=== PATIENT | male | born 1940 | race Caucasian/White ===

== ENCOUNTER 2024-07-15 12:49 | Emergency (ER) | payer MEDICARE ==
[~2024-07-15] VITALS: Ht 167.6 cm; Wt 86.0 kg
[2024-07-15 12:59] VITALS: BP 134/81
[2024-07-15] MEDS ORDERED: Diph, Acellular Pertussis, Tet 0.5 ML/VIAL (Tdap) SDV IM ONE (13:10)
[2024-07-15] MEDS ORDERED: HYDROcodone 5 MG/Acetaminophen 325 MG/COMBO PO ONE (13:10)
[2024-07-15] MEDS ORDERED: AMOX/K CLAV875 M1 PO (14:35)
[2024-07-15] MEDS ORDERED: ZPAK PO (14:35)
[2024-07-15] MEDS ORDERED: HYDROCO/APAP1 TA9 PO (14:35)
[2024-07-15 15:05] VITALS: BP 99/76
== END 2024-07-15 15:06 | disposition home or self-care (01) ==
LOC: ED 12:49
DX: S22.41XA Multiple fractures of ribs, right side, initial encounter for closed fracture (principal); S81.811A Laceration without foreign body, right lower leg, initial encounter; W01.0XXA Fall on same level from slipping, tripping and stumbling without subsequent striking against object, initial encounter; Z96.653 Presence of artificial knee joint, bilateral

== ENCOUNTER 2024-08-10 11:58 | Observation (INO) | payer MEDICARE ==
[2024-08-10] VITALS (8 sets, daily range): BP systolic 103–124; BP diastolic 67–83
[~2024-08-10] VITALS: Ht 172.7 cm; Wt 104.4 kg
[~2024-08-10 11:58] MED LIST: AMOX/K CLAV875 M1 PO; HYDROCO/APAP1 TA9 PO; ZPAK PO
[2024-08-10] MEDS ORDERED: ASPIRIN 81 MG/TAB PO ONE (12:10)
--- NOTE | 2024-08-10 12:10 | NUR ---
PATIENT TO ER ROOM 1 WITH STEADY GAIT.
[2024-08-10 12:32] LABS: BASO% 0.5 % (0-3); EOS% 1.3 % (0-8); HEMATOCRIT 45.8 % (39.0-50.0); HEMOGLOBIN 14.5 g/dl (14.0-18.0); LYMPH% 8.6 % (15-41); MEAN CELL VOLUME 101.8 fL CALC (80.0-100.0); MEAN CORPUSCULAR HGB 32.2 pG CALC (26.0-32.0); MEAN CORPUSCULAR HGB CONC 31.7 g/dL CAL (32.0-36.0); MONO% 9.7 % (2-13); NEUT# 6.52 thou/uL (1.82-7.42); NEUT% 78.9 % (42-76); RED BLOOD COUNT 4.5 mill/uL (4.70-6.10); RED CELL DISTRI WIDTH 13.3 % (11.5-15.5)
[2024-08-10 12:41] LABS: ALBUMIN 4.3 g/dL (3.2-5.0); ALKALINE PHOSPHATASE 430 u/l (38-126); ANION GAP 17 (6-22 (CALC)); BILIRUBIN, TOTAL 1.3 mg/dL (0.2-1.3); BUN 27 mg/dL (8-23); BUN/CREATININE RATIO 14 (12-20 (CALC)); CARBON DIOXIDE 27 mmol/l (22-30); CHLORIDE 99 mmol/l (95-108); CREATININE 1.9 mg/dL (0.7-1.3); ESTIMATED GFR 35 ML/MIN (>=90 (CALC)); LIPASE 47 u/l (23-300); POTASSIUM 4.2 mmol/l (3.5-5.1); SGOT/AST 37 u/l (19-48); SODIUM 138 mmol/l (137-146); TOTAL PROTEIN 7.4 g/dL (6.3-8.2)
[2024-08-10 12:54] LABS: PROTHROMBIN TIME 10.5 SECONDS (9.0-12.5)
[2024-08-10 13:06] LABS: URINE BILIRUBIN - DIPSTICK Negative (NEGATIVE); URINE BLOOD DIPSTICK Negative (NEGATIVE); URINE GLUCOSE - DIPSTICK Negative (NEGATIVE); URINE KETONE Negative (NEGATIVE); URINE LEUK ESTERASE Negative (NEGATIVE); URINE NITRITE - DIPSTICK Negative (Negative); URINE PROTEIN - DIPSTICK Negative (NEG-TRACE); URINE SPECIFIC GRAVITY 1.015
[2024-08-10 13:18] LABS: URINE COLOR Yellow
--- NOTE | 2024-08-10 13:35 | NUR ---
PT BACK FROM CT, VSS, CALL LIGHT WITHIN REACH, UPDATED ON THE PLAN OF CARE
[2024-08-10] MEDS ORDERED: Pantoprazole Sodium 40 MG VIAL (Protonix) IV ONE (15:15)
[2024-08-10] MEDS ORDERED: FAMOTIDINE 10MG/ML 2ML SDV IV ONE (15:15)
--- NOTE | 2024-08-10 15:25 | NUR ---
PT MEDICATED PER EMAR, PT SITTING IN THE CHAIR, GAVE THE PT A WATER, PT DENIES ANY NEEDS AT THIS TIME, CALL LIGHT WITHIN REACH, PT UPDATED ON THE PLAN OF CARE
--- NOTE | 2024-08-10 15:26 | NUR ---
PT MEDICATED PER EMAR, PT SITTING IN THE CHAIR, PT DENIES ANY NEEDS AT THIS TIME, PT UPDATED ON THE PLAN OF CARE
[2024-08-10] MEDS ORDERED: VAZALORE81 MG PO (15:29)
[2024-08-10] MEDS ORDERED: CIMETIDINE400 M1 PO (15:30)
[2024-08-10] MEDS ORDERED: FINASTERIDE5 MG PO (15:31)
[2024-08-10] MEDS ORDERED: CITALOPRAM20 MG PO (15:31)
[2024-08-10] MEDS ORDERED: KLOR-CON M1010 MEQ PO (15:33)
[2024-08-10] MEDS ORDERED: LASIX 80 MG TAB80 MG PO (15:33)
[2024-08-10] MEDS ORDERED: ALDACTONE50 MG PO (15:34)
[2024-08-10] MEDS ORDERED: TRELEGY ELLIPTA1 AE1 IN (15:35)
[2024-08-10] MEDS ORDERED: TAMSULOSIN0.4 MG PO (15:35)
[2024-08-10] MEDS ORDERED: SULFAMETHOXAZOL1 TA3 PO (15:37)
[2024-08-10] MEDS ORDERED: SODIUM CHLORIDE 0.9% 1,000 ML IV ONE (16:10)
[2024-08-10] MEDS ORDERED: ACETAMINOPHEN 325 MG/TAB PO PRN (16:25)
[2024-08-10] MEDS ORDERED: MAGNESIUM HYDROXIDE 30 ML UDC PO PRN (16:25)
[2024-08-10] MEDS ORDERED: Polyethylene Glycol 3350 17 GM/PKT PO SCH (17:00)
--- NOTE | 2024-08-10 17:16 | NUR ---
PT SITTING UP AT THE FOOT OF THE BED EATING DINNER, PT UPDATED ON THE PLAN OF CARE, PT DENIES ANY OTHER NEEDS AT THIS TIME
--- NOTE | 2024-08-10 18:01 | NUR ---
[facility] CALLED BACK, GAVE REPORT TO MATT BELTRAN LPN, PT TO BE TRANSPORTED TO [facility] BED [address]
--- NOTE | 2024-08-10 18:20 | NUR ---
PT ARRIVED TO THE UNIT VIA WC, PT IS A&O X3, PT AMBULATED FROM THE WC TO THE BEDSIDE SCALE AND TO THE BED WITH A STEADY GAIT, RESP. EVEN AND UNLABORED, PT ORIENTED TO THE ROOM AND CALL LARSON SYSTEM, SAFETY MEASURES INFORCED, CALL LARSON WITHIN REACH
--- NOTE | 2024-08-10 20:00 | NUR ---
RECEIVED REPORT FROM NURSE URBANO, PATIENT ALERT ORIENTED ABLE TO MAKE NEEDS KNONW, DENIES PAIN AT THIS TIME, PATIENT ARRIVED [facility] UNIT AT 1820, PATIENT DENIES PAIN AT THIS TIME, HOKED ON TELE #4 SR 98, LUNG SOUNDS CLEAR, PATIENT NOT IN DISTRESS, WOUND NOTED ON RT ANTERIOR LEG DRESSING IN PLACED AND WOUND ON LEFT LATERAL LEG DRESSING IN PLACED, PATIENT GOES TO [facility] ONCE A WEEK EVERY THURSDAY, TRACE EDEMA NOTED ON BILAT ANKLE, ADMISSION ASSESSMENT COMPLETED, PATIENT ORIENTED TO ROOM AND CALL LIGHT SYSTEM.
[2024-08-10] MEDS ORDERED: TAMSULOSIN HCL 0.4 MG CAP PO SCH (21:00)
[2024-08-10] MEDS ORDERED: Heparin SODIUM (Porcine) 5,000 UNITS/ML SDV SC SCH (22:00)
[2024-08-11] VITALS (10 sets, daily range): BP systolic 98–121; BP diastolic 62–73
--- NOTE | 2024-08-11 00:47 | NUR ---
PATIENT RESTING IN BED, EYES CLOSED, BREATHING EVEN UNLABORED MARIANNE;L LIGHT WITHIN REACHED.
[2024-08-11 03:21] LABS: ALBUMIN 3.7 g/dL (3.2-5.0); BASO% 0.8 % (0-3); BILIRUBIN, TOTAL 0.8 mg/dL (0.2-1.3); CHOLESTEROL HDL RATIO 2.1 (<4.4 (CALC)); CREATININE 2.1 mg/dL (0.7-1.3); EOS% 2.7 % (0-8); IMMATURE GRANULOCYTES 0.4 % (0.0-5.0); LYMPH% 8.9 % (15-41); MAGNESIUM 2.5 mg/dL (1.6-2.3); MEAN CELL VOLUME 102.4 fL CALC (80.0-100.0); MEAN CORPUSCULAR HGB 32.9 pG CALC (26.0-32.0); MEAN CORPUSCULAR HGB CONC 32.1 g/dL CAL (32.0-36.0); MONO% 14.6 % (2-13); NEUT# 5.32 thou/uL (1.82-7.42); NEUT% 72.6 % (42-76); POTASSIUM 4.2 mmol/l (3.5-5.1); RED BLOOD COUNT 3.8 mill/uL (4.70-6.10); RED CELL DISTRI WIDTH 13.4 % (11.5-15.5); TOTAL PROTEIN 6.7 g/dL (6.3-8.2)
[2024-08-11 03:40] LABS: HEMATOCRIT 38.9 % (39.0-50.0); HEMOGLOBIN 12.5 g/dl (14.0-18.0)
--- NOTE | 2024-08-11 04:50 | NUR ---
PATIENT RESTING IN BED, EYES CLOSED, BREATHING EVEN UNALABORED, DENIES PAIN AT THIS TIME, CALL LIGHT WITHIN REACHED.
--- NOTE | 2024-08-11 07:10 | NUR ---
PT LAYING IN BED RESTING WITH EYES CLOSED, AROUSES EASILY TO VERBAL STIMULI, PT A&O X3, NORMAL S1 S2 HEART SOUNDS, TELE MONITOR IN PLACE, ABD DISTENDED AND SOFT WITH ACTIVE BOWEL SOUNDS, 20G RAC IV SL, STRONG RADIAL PULSES, WEAK PEDAL PULSES, SAFETY MEASURES REINFORCED, CALL LARSON WITHIN REACH
[2024-08-11] MEDS ORDERED: SPIRONOLACTONE 25 MG/TAB PO SCH (09:00)
[2024-08-11] MEDS ORDERED: FINASTERIDE 5 MG/TAB PO SCH (09:00)
[2024-08-11] MEDS ORDERED: PANTOPRAZOLE SODIUM Sesquihydr 40 MG/TAB PO SCH (09:00)
[2024-08-11] MEDS ORDERED: ASPIRIN EC 81 MG/TAB PO SCH (09:00)
[2024-08-11] MEDS ORDERED: FUROSEMIDE 40 MG/TAB PO SCH (09:00)
[2024-08-11] MEDS ORDERED: SODIUM CHLORIDE 0.9% 1,000 ML IV SCH (10:30)
[2024-08-11] MEDS ORDERED: LACTULOSE 20 GM/30 ML UDC PO SCH (11:00)
--- NOTE | 2024-08-11 12:00 | NUR ---
PT AMBULATING IN THE GALLOWAY WITH PHYSICAL THERAPY, PT TOLERATING WELL, NO S/S OF DISTRESS, CALL LARSON WITHIN REACH
--- NOTE | 2024-08-11 16:00 | NUR ---
PT LAYING IN BED RESTING WITH EYES CLOSED, AROUSES EASILY TO VERBAL STIMULI, PT DENIES ANY NEEDS AT THIS TIME, CALL LARSON WITHIN REACH
--- NOTE | 2024-08-11 19:34 | NUR ---
PATIENT OBSERVED RESTING IN BED. ALERT AND ABLE TO MAKE NEEDS KNOWN. ASSESSMENT COMPLETE. NO DISTRESS NOTED. COMPLAINTS OF MILD PAIN TO RIBS. PRN TYLENOL GIVEN PER ORDERS. PATIENT TOLERATED WELL. USES URINAL TO VOID. CLEAR YELLOW URINE. DENIES NEEDING ANYTHING ELSE AT THIS TIME. BED REMAINS IN LOW POSITION. CALL LARSON IN REACH.
--- NOTE | 2024-08-11 23:40 | NUR ---
PATIENT REMAINS RESTING IN BED. NO COMPLAINTS. DENIES NEEDING ANYTHING AT THIS TIME. BED REMAINS IN LOW POSITION. CALL LARSON IN REACH.
[2024-08-12 03:35] VITALS: BP 116/77
--- NOTE | 2024-08-12 03:50 | NUR ---
PATIENT REMAINS RESTING IN BED. NO COMPLAINTS. DENIES NEEDING ANYTHING AT THIS TIME. CALL BED REMAINS WITHIN REACH.
[2024-08-12 05:22] LABS: BASO% 0.8 % (0-3); EOS% 3.7 % (0-8); HEMATOCRIT 39.3 % (39.0-50.0); HEMOGLOBIN 12.5 g/dl (14.0-18.0); LYMPH% 15.2 % (15-41); MEAN CORPUSCULAR HGB 33.1 pG CALC (26.0-32.0); MEAN CORPUSCULAR HGB CONC 31.8 g/dL CAL (32.0-36.0); MONO% 16.2 % (2-13); NEUT# 3.76 thou/uL (1.82-7.42); NEUT% 63.1 % (42-76); RED BLOOD COUNT 3.78 mill/uL (4.70-6.10); RED CELL DISTRI WIDTH 13.6 % (11.5-15.5)
[2024-08-12 05:25] LABS: ALBUMIN 3.4 g/dL (3.2-5.0); BILIRUBIN, TOTAL 0.7 mg/dL (0.2-1.3); CREATININE 1.8 mg/dL (0.7-1.3); MAGNESIUM 2.5 mg/dL (1.6-2.3); POTASSIUM 4.5 mmol/l (3.5-5.1)
[2024-08-12 07:25] VITALS: BP 93/59
[2024-08-12] MEDS ORDERED: FUROSEMIDE 40 MG/TAB PO SCH (09:00)
[2024-08-12] MEDS ORDERED: LASIX20 MG PO (09:34)
[2024-08-12 11:44] VITALS: BP 118/72
--- NOTE | 2024-08-12 13:37 | NUR ---
Guest Services Assistant went over discharge instructions with patient at this time, no further questions, peripheral IV removed without any complications.
== END 2024-08-12 13:24 | disposition home or self-care (01) ==
LOC: ED 11:58 → ED-I 16:01 → ED 16:14 → MS2 16:15
PROVIDERS: Nurse Practitioner; Nurse Practitioner Family; ADMIT Internal Medicine; ATTEND Internal Medicine
DX: R07.89 Other chest pain (principal); R10.10 Upper abdominal pain, unspecified; R26.89 Other abnormalities of gait and mobility; N17.9 Acute kidney failure, unspecified; R60.0 Localized edema; N18.9 Chronic kidney disease, unspecified; N40.0 Benign prostatic hyperplasia without lower urinary tract symptoms; J44.9 Chronic obstructive pulmonary disease, unspecified; K59.00 Constipation, unspecified; Z91.81 History of falling
CPT/HCPCS: J1644; J2470; Q9967

== ENCOUNTER 2024-11-06 21:24 | Emergency (ER) | payer MEDICARE ==
[~2024-11-06] VITALS: Ht 172.7 cm; Wt 102.1 kg
[~2024-11-06 21:24] MED LIST changes: +ALDACTONE50 MG PO; +CIMETIDINE400 M1 PO; +CITALOPRAM20 MG PO; +FINASTERIDE5 MG PO; +KLOR-CON M1010 MEQ PO; +LASIX 80 MG TAB80 MG PO; +LASIX20 MG PO; +SULFAMETHOXAZOL1 TA3 PO; +TAMSULOSIN0.4 MG PO; +TRELEGY ELLIPTA1 AE1 IN; +VAZALORE81 MG PO
[2024-11-06 21:33] VITALS: BP 103/62
[2024-11-06] MEDS ORDERED: NEOMYCIN-BACITRACIN-POLYMYXIN 0.5 GM/PAK PAK TOP ONE (21:35)
[2024-11-06] MEDS ORDERED: ACETAMINOPHEN 500 MG TAB PO ONE (21:45)
[2024-11-06] MEDS ORDERED: IBUPROFEN 600 MG/TAB PO ONE (21:45)
[2024-11-06 22:06] VITALS: BP 103/62
== END 2024-11-06 22:15 | disposition home or self-care (01) ==
LOC: ED 21:24
PROC: 0HQKXZZ Repair Right Lower Leg Skin, External Approach (ICD-10-PCS; principal; 2024-11-06)
DX: S81.011A Laceration without foreign body, right knee, initial encounter (principal); J44.9 Chronic obstructive pulmonary disease, unspecified; W01.0XXA Fall on same level from slipping, tripping and stumbling without subsequent striking against object, initial encounter; Y92.512 Supermarket, store or market as the place of occurrence of the external cause

== ENCOUNTER 2024-11-07 10:43 | Emergency (ER) | payer MEDICARE ==
[~2024-11-07] VITALS: Ht 172.7 cm; Wt 102.0 kg
[2024-11-07 12:03] VITALS: BP 115/73
[2024-11-07 12:31] VITALS: BP 93/74
[2024-11-07 12:45] VITALS: BP 93/74
== END 2024-11-07 12:46 | disposition home or self-care (01) ==
LOC: ED 10:43
PROC: 0HQKXZZ Repair Right Lower Leg Skin, External Approach (ICD-10-PCS; principal; 2024-11-07)
DX: T81.33XA Disruption of traumatic injury wound repair, initial encounter (principal); Y83.8 Other surgical procedures as the cause of abnormal reaction of the patient, or of later complication, without mention of misadventure at the time of the procedure; J44.9 Chronic obstructive pulmonary disease, unspecified

== ENCOUNTER 2024-11-08 10:40 | Emergency (ER) | payer MEDICARE ==
[~2024-11-08] VITALS: Ht 172.7 cm; Wt 99.0 kg
[2024-11-08 12:23] VITALS: BP 125/83
== END 2024-11-08 12:23 | disposition home or self-care (01) ==
LOC: ED 10:40
PROC: 0HQKXZZ Repair Right Lower Leg Skin, External Approach (ICD-10-PCS; principal; 2024-11-08)
DX: T81.33XA Disruption of traumatic injury wound repair, initial encounter (principal); Y83.8 Other surgical procedures as the cause of abnormal reaction of the patient, or of later complication, without mention of misadventure at the time of the procedure; J44.9 Chronic obstructive pulmonary disease, unspecified; Z79.82 Long term (current) use of aspirin